=== PATIENT | female | born 1960 | race Caucasian/White ===

== ENCOUNTER 2017-08-10 14:59 | Observation (INO) ==
[2017-08-10] MEDS ORDERED: MORPHINE 2 MG/1 ML SYRINGE IV STA (15:44)
[2017-08-10] MEDS ORDERED: ASPIRIN 325 MG TABLET PO STA (15:44)
[2017-08-10] MEDS ORDERED: ONDANSETRON 4 MG/2 ML VIAL IV STA (15:44)
[2017-08-10] MEDS ORDERED: METOPROLOL TARTRATE 25 MG TABLET PO STA (15:44)
[2017-08-10] MEDS ORDERED: ALUM/MAG/SIMETH/LIDO VISC 1:1 30 ML BOTTLE PO STA (15:44)
[2017-08-10] MEDS ORDERED: NITROGLYCERIN 2% OINT 1 INCH/GM PACK TOP STA (15:44)
--- NOTE | 2017-08-10 15:49 | EKG Report ---
Stationary ECG Study [facility] ER Test Date: 08/10/2017 3:14:28 PM Pat Name: BRYCE HARPER Department: Room: Gender: F Senior Receptionist: : 1960 Requested by: Jamie Harrison Order Number: [id number] Reading MD: JANESSA GÓMEZ Intervals [place] Rate: 69 P: 61 NJ: 151 QRS: -15 QRSD: 72 T: 32 QT: 395 QTc: 414 Interpretive Statements SINUS RHYTHM WITH SINUS ARRHYTHMIA Electronically Signed On 08-14-17 06:41:04 CDT by JANESSA GÓMEZ [email or web address]
[2017-08-10] MEDS ORDERED: ALUM/MAG/SIMETH/LIDO VISC 1:1 30 ML BOTTLE PO ONE (15:52)
[2017-08-10] MEDS ORDERED: ASPIRIN 325 MG TABLET ONE (15:52)
[2017-08-10] MEDS ORDERED: METOPROLOL TARTRATE 25 MG TABLET ONE (15:53)
[2017-08-10] MEDS ORDERED: NITROGLYCERIN 2% OINT 1 INCH/GM PACK TOP ONE (15:54)
[2017-08-10] MEDS ORDERED: ONDANSETRON 4 MG/2 ML VIAL ONE (15:55)
[2017-08-10 15:57] LABS: Basophils # 0.1 10*3/uL (0.0-0.2); Basophils % 0.9 % (0.0-0.8); Eosinophils # 0.4 10*3/uL (0.0-0.87); Hematocrit 45.1 VOL% (35.7-47.0); Hemoglobin 15.4 GM/DL (12.0-16.0); Immature Granulocytes % 0.3 %; Immature Granulocytes Absolute 0.02 #; Lymphocytes # 1.7 10*3/uL (1.4-4.0); Lymphocytes % 21.4 % (21.3-54.2); Mean Corpuscular HGB Conc 34.1 GM/DL (32-36); Mean Corpuscular Hemoglobin 31 PG (27-34); Mean Corpuscular Volume 90.4 FL (87-102); Mean Platelet Volume 10.9 FL (9.6-12.0); Monocytes # 0.8 10*3/uL (0.11-0.8); Monocytes % 10.1 % (1.7-12.7); Neutrophils % 62.3 % (38.7-73.9); Platelet Count 321 T/CUMM (130-400); Red Blood Count 4.99 MC/CUMM (3.8-5.5); Red Cell Distribution Width 13.2 % (9.3-17.3)
[2017-08-10 16:04] LABS: INR 1.4; PT Patient Result 14.3 SECS
[2017-08-10 16:08] LABS: Albumin 3.6 G/DL (3.4-5.0); Bilirubin,Total 0.6 MG/DL (0.2-1.0); Calcium 9.4 MG/DL (8.5-10.1); Magnesium 2.1 MG/DL (1.8-2.4); Osmolality,Calculated 287.8 MOS/KG (273-304); Potassium 4.1 MMOL/L (3.5-5.1); Total Protein 7.4 G/DL (6.4-8.3)
--- NOTE | 2017-08-10 16:47 | XRay Report ---
2 view chest 08/10/2017 414 PM Indication: Shortness of breath Comparison: Not available Findings: Cardiomediastinal contours are normal. Platelike atelectasis within the left lung base. No acute osseous abnormalities. Visualized upper abdomen demonstrates no acute pathology. Impression: No acute cardiopulmonary findings PROCEDURE INTERPRETED AT [facility] DEPARTMENT OF RADIOLOGY Final Report Signed by: Sterling Oneil
--- NOTE | 2017-08-10 17:47 | Emergency Department Note ---
Tejas Ansari Brooke, am scribing for, and in the presence of, Jamie Evans MD 15 :41. Cristina Ansari Charles R, MD, personally performed the services described in this documentation, ascribed by Jodi Lazaro in my presence, and it is both accurate and complete 747 . Arrival - Arrival Chief Complaint: Chest Pain Stated Complaint: chest pain ED Nursing Triage Note: c/o Having chest pain that started today around 1300, + nausea., 4mg zofran in route, 20 g to the left forearm , states the pain is radiating up to the neck and the back of the scalp., patient gowned and connected to monitor Mode of Arrival: Stretcher Limitations: No Limitations Source: Patient, EMS, RN Notes Reviewed Time Seen by Provider: 08/10/17 15:11 - History of Present Illness HPI Narrative: Patient is a 56 year old female brought into the ED by EMS with c/o chest pain. Patient states "I had a severe pain in my chest and I had to call the ambulance. " The pain radiates up into the right side of her neck. She says she also go nauseated, diaphoretic and has a headache. She says she has some "tingling" in her tongue. Patient says she has had chest pain in the past but "nothing this severe." She says the pain is gone now. She has no other complaints. She says she has a heart murmur but nothing was heard upon exam. Patient does not have any other medical problems. She does not have FHx of heart disease. She does not take any medications. She is not a smoker. Home Medications: Home Medications Medication Instructions Recorded Confirmed Type No Known Home Medications [No 08/10/17 08/10/17 History Known Home Medications] Review of System - Review of System 12 point system: reviewed and no additional remarkable complaints except as stated - Review of System Constitutional: Present: diaphoresis. Absent: fever Respiratory: Absent: respiratory distress Cardiovascular: Present: chest pain Gastrointestinal: Present: nausea Musculoskeletal: Present: neck pain (right side radiating from chest) Skin: Absent: rash Neurological: Present: headache Medical,Surgical,& Family Hx - Social History Smoking Status: Unknown if ever smoked Frequency of Alcohol Use: Unknown Type of Drug Use: Unknown Exam Vital Signs: Vital Signs Temperature 97.8 F 08/10/17 15:00 Pulse Rate 64 08/10/17 16:45 Respiratory Rate 16 08/10/17 16:45 Blood Pressure 116/79 08/10/17 16:45 O2 Sat by Pulse Oximetry 96 08/10/17 16:45 - General General appearance: alert, in no apparent distress - Head Head exam: Present: atraumatic, normocephalic - Eye Eye exam: Present: normal appearance, PERRL, EOMI - ENT ENT exam: Present: normal exam - Neck Neck exam: Present: normal inspection - Chest Chest inspection: Present: normal inspection, symmetric chest wall rise - Respiratory Respiratory exam: Present: normal lung sounds bilaterally - Cardiovascular Cardiovascular exam: Present: regular rate, normal rhythm, normal heart sounds. Absent: murmur - Abdominal Exam Abdominal exam: Present: soft, normal bowel sounds. Absent: distention, tenderness - Extremities Exam Extremities exam: Present: normal inspection - Back Exam Back exam: Present: normal inspection - Neurological Exam Neurological exam: Present: alert, oriented X3 - Psychiatric Psychiatric exam: Present: normal affect, normal mood - Skin Skin exam: Present: warm, dry, intact, normal color Course - Consultations Consultation #1: Hospitalist will admit patient Time: 17:59 Results - Labs CBC & BMP: 08/10/17 15:20 08/10/17 15:20 Lab Results: I have reviewed the patients labs Labs: Laboratory Tests 08/10/17 08/10/17 08/10/17 15:20 15:20 15:20 WBC 8.0 RBC 4.99 Hgb 15.4 Hct 45.1 MCV 90.4 MCH 31 MCHC 34.1 RDW 13.2 Plt Count 321 MPV 10.9 Neut % (Auto) 62.3 Lymph % (Auto) 21.4 [place] % (Auto) 10.1 Eos % (Auto) 5.0 Baso % (Auto) 0.9 H Neut # (Auto) 5.0 Lymph # (Auto) 1.7 [place] # (Auto) 0.8 Eos # (Auto) 0.4 Baso # (Auto) 0.1 Immature Gran % 0.3 Nucleated RBC % 0.0 Immature Gran # 0.02 Nucleated RBCs # 0.00 Immature Plt Fraction 0.0 INR 1.4 PT Patient/Control Mix 14.3 D-Dimer, Quantitative <= 0.5 Sodium 144 Potassium 4.1 Chloride 110 H Carbon Dioxide 29 Anion Gap 9.1 BUN 15 Creatinine 1.10 H GFR Calculation 64 BUN/Creatinine Ratio 13.00 Glucose 111 H Calculated Osmolality 287.8 Calcium 9.4 Magnesium 2.1 Total Bilirubin 0.60 AST 11 ALT 22 Alkaline Phosphatase 85 Total Protein 7.4 Albumin 3.6 Globulin 3.8 H Albumin/Globulin Ratio 0.9 L Lipase 371.0 Laboratory Tests 08/10/17 08/10/17 15:20 15:20 Troponin I < 0.015 B-Natriuretic Peptide 30 - Diagnostic Findings Procedure: Chest x-ray: report reviewed by me (No acute cardiopulmonary findings.) Disposition Clinical Impression: Chest pain Case discussed with: patient, patient's family Disposition: Still a Patient Condition: Stable Time of Disposition: 17:59
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
[2017-08-10 19:17] LABS: Apearance,Urine Slightly Hazy (Clear); Bacteria,Urine Occasional /HPF (Few); Bilirubin,Urine Negative (Negative); Blood, Urine Negative (Negative); Glucose,Urine (UA) Negative (Negative); Ketones,Urine Negative (Negative); Mucus,Urine Occasional /LPF (Occasional); Nitrite,Urine Negative (Negative); Protein,Urine Negative; Squamous Epithelial Cell,Urine Occasional /HPF (0-10); Urine Color Yellow (Yellow); Urine Specific Gravity 1.023 (1.001-1.035); WBC,Urine <1 /HPF (0-6)
[2017-08-10] MEDS: PANTOPRAZOLE 40 MG TABLET PO SCH (21:16)
[2017-08-10] MEDS: ALUM/MAG/SIMETH/LIDO VISC 1:1 30 ML BOTTLE PO SCH (21:16)
[2017-08-11] MEDS ORDERED: IBUPROFEN 800 MG TABLET PO PRN (03:53)
[2017-08-11] MEDS ORDERED: ACETAMINOPHEN 325 MG TABLET PO PRN (03:54)
[2017-08-11] MEDS ORDERED: ONDANSETRON 4 MG/2 ML VIAL IV PRN (03:55)
[2017-08-11] MEDS ORDERED: ALUMINUM/MAGNES/SIMETH MAX STR 30 ML UDCUP PO PRN (03:56)
[2017-08-11] MEDS: ALUM/MAG/SIMETH/LIDO VISC 1:1 30 ML BOTTLE PO SCH ×3 (08:29→21:16)
[2017-08-11] MEDS: PANTOPRAZOLE 40 MG TABLET PO SCH ×2 (08:29→21:16)
--- NOTE | 2017-08-11 09:08 | Gastrointestinal Consult Note ---
Assessment and Plan (1) Atypical chest pain Status: Acute Assessment and plan: The patient has been experiencing some 10 out of 10 atypical chest pain with essentially negative workup here at the hospital including troponin levels, EKG , laboratory workup. She did respond somewhat to a GI cocktail, this may represent a pill esophagitis versus esophageal spasm or severe gastritis/reflux esophagitis. We will take the patient to upper endoscopy tomorrow morning so that she could potentially be discharged after the procedure. She is still nauseated and is concerned about going home as to have to come back into the hospital to get this worked up further. Agree with the use of pantoprazole in a twice daily dosing schedule at 40 mg in the interim. We may cut this back depending on the findings of the upper endoscopy tomorrow. Will likely take biopsies looking for bacterial infections in the stomach and note whether or not gastroparesis is present and feeding into present symptoms. Current Visit: Yes (2) GERD (gastroesophageal reflux disease) Status: Acute Assessment and plan: Patient has very minimal symptoms at baseline. She usually controls this with Tums but occasionally has to rely upon [id number] Nexium. Current Visit: Yes (3) Screening for colorectal cancer Status: Acute Assessment and plan: This can be set up as an outpatient once the patient is left the hospital at some point in the future, suggest [address] as she has not had this done previously--she is 5 years overdue at this point. Unfortunately she does not have a primary care provider. Current Visit: Yes History of Present Illness Chief complaint: Epigastric pain History of present illness: Ms. Nick is a 56 year old female who was brought in under observation by Dr. Quan who has a history of underlying reflux which is unusual for her that she treats with Tums mostly and occasional Nexium [id number]--she was in her state of usual health when she developed a substernal chest pressure that was 10 out of 10 in intensity at about lunchtime there was not associated with fainting but did radiate up from the chest into the head and was associated with a headache. This occurred after eating tuna fish with water. She states to me that it was at the level of the xiphoid but did not go down to the epigastric region. She did feel nauseous but did not vomit at all. She does not typically use NSAID, food does not get stuck if she was swallowing but she has not been brave enough to have anything solid since the pain resolved. She was treated with a GI cocktail in the emergency room after EKG and chest x-ray were negative for acute process. D-dimers were negative, the patient's hematocrit is normal at 45.1% with hemoglobin of 15.4 g/dL and basically a normal T1 and creatinine at 15 and 1.1 patient's liver function tests are also normal as were her troponin levels. She was about to be discharged but would like to stay until she is performed on upper endoscopy to look for evidence of reflux or pill esophagitis, ulcers, cancer etc. she states that she does not take any medications on a routine basis but does admit to occasional use of Tums and the Nexium 22 mg as mentioned. She does not have diarrhea or constipation typically, she has never had upper or lower endoscopy and is 5 years overdue for the colon to be checked for colorectal cancer screening purposes. We will arrange for this going out the door as an outpatient. She has not noticed any bright red blood per rectum or black tarry bowel movements. Rectal exam today showed guaiac negative stool. Her only abdominal surgery has been a . Home Medications Medication Instructions Recorded Confirmed Type No Known Home Medications [No 08/10/17 08/10/17 History Known Home Medications] Allergies Allergy/AdvReac Type Severity Reaction Status Date / Time No Known Allergies Allergy Verified 08/10/17 20:26 Medical,Surgical,& Family Hx - Medical History Cardio: History of: Valvular Heart Disease (pt reports heart murmer) Gastrointestinal: History of: GERD Musculoskeletal: History of: Degenerative Disk Disease - Surgical History Thoracic Surgeries: Surgical HX of;: Nephrectomy (pt reports she donated a kidney in 2001) Reproductive Surgeries: Surgical HX of;: Section - Family History Family History: Reports;: Family Cancer, Family Heart Disease - Social History Smoking Status: Never smoker Frequency of Alcohol Use: Unknown Type of Drug Use: Unknown Review of systems: Constitutional: Denies fever, chills, and vomiting--some nausea noted Eyes: Denies dry eyes, and scleral icterus HENT: Admits to some headaches Cardiovascular: She is having acute chest pain, but no claudication Respiratory: Denies shortness of breath, wheezing, and difficulty breathing, denies cough Gastrointestinal: As noted in the HPI Genitourinary: Denies dysuria and hematuria Neurologic: Denies vision loss, and loss of sensation Musculoskeletal: The patient does have some joint stiffness, but no joint swelling and/or muscular weakness Psychiatric: Denies depression and tiera symptoms Heme-Lymph: Denies easy bruising, lymph node enlargement or tenderness, night sweats, excessive bleeding Allergies-immunologic: Denies pruritus and rhinorrhea Exam - Constitutional Vitals: Period Temp Pulse Resp BP Sys/Strong Pulse Ox Last 24 Hr 96.6 F-97.8 F 47-78 16-20 92-151/48-96 92-100 General appearance: mild distress - Head Head exam: Present: normocephalic - Eye Eye exam: Present: EOMI Pupils: Present: JUAN ALBERTO - Respiratory Respiratory exam: Present: clear to auscultation bilaterally. Absent: rhonchi, stridor, wheezes - Cardiovascular Cardiovascular exam: Present: regular rate and rhythm - GI/Abdominal GI/Abdominal exam: Present: normal bowel sounds, soft, other (Well-healed midline scar below umbilicus consistent with ). Absent: distended, guarding, tenderness, rebound - Extremities Exam Extremities exam: Absent: edema - Neurological Exam Neurological exam: Present: alert, oriented X3, CN II-XII intact. Absent: motor sensory deficit - Psychiatric Psychiatric exam: Present: normal affect, normal mood - Skin Skin exam: Present: warm Results - Labs CBC & BMP: 08/10/17 15:20 08/10/17 15:20
--- NOTE | 2017-08-11 09:15 | Discharge Summary ---
<Atilio Davies - Last Filed: 08/11/17 09:13> Hospital Course - Hospital Course Hospital Course: Ms. Lovett is a 56 year old white female with a history of GERD and degenerative disc disease who presented to the ED on 08/10 with complaints of chest pain with onset hours prior to arrival. Patient states she was walking in her hallway when she began to have severe chest pain. Patient states that the pain started 45 minutes after she consumed tunafish with water. Patient states that the pain is located underneath her right breast and into the epigastric area. Patient reported radiation of the pain into her neck and went into her head causing her to have a headache. She has had pain like this for months to years, and takes OTC Nexium intermittently. She has never had GI workup. Patient denies having a PCP. She denies smoking, drinking, and illicit drug use. She does have a family history of heart disease. Pt. also reports being under lots of stress. Troponins negative and based on history and PMH she is at low risk for cardiac cause. CXR negative for any acute process. Pt was admitted overnight for observation. GI was consulted to evaluate patient. I have seen and examined Mrs Lovett and have formed the discharge plan and reconciled the medicines. I agree with the summary above. She was seen by Dr Garzon who was able to do an EGD this morning which showed erosive esophagitis, duodentitis and gastritis and hiatal hernia due to NSAIDs. She is to avoid NSAIDs and has been instructed in diet changes to improve GERD. She will take Protonix 40mg BID prescribed by Dr Garzon and see him in clinic have cscope in about a month for screening. She will follow up [place] [facility] [place] about [place]. Diagnosis - Discharge Diagnosis (1) Chest pain Status: Acute (2) Degenerative disk disease Status: Chronic Specialty Discharge - Follow Up or Referrals Follow up with: Asael Garzon MD [Physician] - (Schedule for Outpatient Colonoscopy in 1 month at [facility]) [facility] [Provider Group] - 1 Week Discharge Plan - Discharge Data Disposition: Disch To Home/Self Care - Discharge Medications New Pantoprazole Tab [Protonix Tab] 40 mg PO BID #60 tablet - Follow Up or Referral Follow Up: Asael Garzon MD [Physician] - (Schedule for Outpatient Colonoscopy in 1 month at [facility]) - Forms/Instructions Exam - Constitutional Vitals: Period Temp Pulse Resp BP Sys/Strong Pulse Ox Last 24 Hr 96.2 F-98.6 F 51-70 16-18 104-126/53-69 94-97 Discharge Results Labs on day of discharge: Labs from last 24 hours 08/12/17 05:04 Sodium 141 Potassium 4.4 Chloride 106 Carbon Dioxide 30 Anion Gap 9.4 BUN 12 Creatinine 1.10 H GFR Calculation 64 BUN/Creatinine Ratio 10.00 Glucose 93 Calculated Osmolality 280.3 Calcium 9.1 DS: Provider Date of admission: 08/10/17 18:23 Primary care physician: . No PCP Attending physician on admission: Megan Quan MD Consults: 08/10/17 20:15 Consult to Physician [CONS] Routine Comment: epigastric pain Consulting Provider: Asael Garzon Person Notified: aware Date Notified: 08/11/17 Time Notified: 08:11 08/11/17 14:22 Consult to Anesthesiology [CONS] Routine Consulting Provider: Reason for Anesthesiology: Pre-op Clearance Discharging clinician: Atilio Davies NP <Paulina Zelaya - Last Filed: 08/12/17 10:44> Hospital Course - Time spent with patient Time with patient DS: Greater than 30 minutes (38 minutes required for discharge planning, medicine reconciliation, documentation.) Diagnosis - Discharge Diagnosis (1) Esophagitis Status: Acute (2) Gastritis and duodenitis Status: Acute (3) Atypical chest pain Status: Resolved Discharge Plan - Discharge Data Condition at Discharge: Stable Discharge Diet: no caffiene (avoid spicy foods, eating within 4 hours of bedtime ) Activity: resume usual activities as tolerated Exam - Constitutional General appearance: no acute distress, over weight - Head Head exam: Present: other (poor dentition) - Eye Eye exam: Present: EOMI. Absent: scleral icterus - Respiratory Respiratory exam: Present: clear to auscultation bilaterally - Cardiovascular Cardiovascular exam: Present: regular rate and rhythm, other (EKG shows NSR without ST-T wave acute changes ). Absent: diastolic murmur, systolic murmur - GI/Abdominal GI/Abdominal exam: Present: normal bowel sounds, soft. Absent: tenderness - Extremities Exam Extremities exam: Absent: edema - Neurological Exam Neurological exam: Present: alert, oriented X3
--- NOTE | 2017-08-11 11:28 | Hospitalist Progress Note ---
Assessment and Plan (1) Chest pain Status: Acute Assessment and plan: Admit to monitored bed. Serial ekgs and troponins. Give GI cocktail. Consult GI for eval in am. Start PPI. 08/11 troponins negative. Pain thought to have GI etiology. GI following. Possible scope in am. Continue to monitor. Current Visit: Yes (2) Degenerative disk disease Status: Chronic Current Visit: Yes Hospitalist: Subjective Interval history: Patient seen and examined this morning. Pt. alert and oriented. Pt denied any acute changes overnight. Pt. states that she is still having mild epigastric pain. GI following. May pursue scope in am. Exam - Constitutional Vitals: Period Temp Pulse Resp BP Sys/Strong Pulse Ox Last 24 Hr 96.6 F-97.8 F 47-78 16-20 92-151/48-96 92-100 General appearance: no acute distress, over weight - Head Head exam: Present: normal inspection, normocephalic - Eye Eye exam: Present: EOMI. Absent: scleral icterus Pupils: Present: JUAN ALBERTO - Respiratory Respiratory exam: Present: clear to auscultation bilaterally. Absent: wheezes - Cardiovascular Cardiovascular exam: Present: regular rate and rhythm - GI/Abdominal GI/Abdominal exam: Present: normal bowel sounds, soft. Absent: tenderness - Extremities Exam Extremities exam: Present: normal capillary refill. Absent: edema - Neurological Exam Neurological exam: Present: alert, oriented X3 - Psychiatric Psychiatric exam: Present: normal affect, normal mood, other (towards end of encounter pt did exhibit anxiousness in reference to possible scope by GI doctor. ) - Skin Skin exam: Present: normal color, warm, dry Results - Labs CBC & BMP: 08/10/17 15:20 08/10/17 15:20 Lab Results: I have reviewed the past 24 hour labs
[2017-08-12 06:10] LABS: Calcium 9.1 MG/DL (8.5-10.1); Osmolality,Calculated 280.3 MOS/KG (273-304); Potassium 4.4 MMOL/L (3.5-5.1)
[2017-08-12] MEDS ORDERED: MIDAZOLAM 2 MG/2 ML VIAL ONE (07:15)
[2017-08-12] MEDS ORDERED: PROPOFOL 200 MG/20 ML VIAL IV ONE (07:58)
[2017-08-12] MEDS ORDERED: LIDOCAINE 2% 5 ML VIAL ONE (07:58)
--- NOTE | 2017-08-12 08:14 | Operative Note ---
Date of procedure: 08/12/17 Pre-op diagnosis: Epigastric tenderness, normal hematocrit, early satiety Post-op diagnosis: other (LA class B erosive esophagitis, 2 cm hiatal hernia, erosive punctate gastritis thought secondary to NSAID's and erosive duodenitis.) Procedure: PROCEDURE: Esophagogastroduodenoscopy (EGD) with cold biopsy for pathology REFERRING PHYSICIAN: Megan Quan MD INDICATIONS: Epigastric tenderness, early satiety, normal hematocrit, NSAID exposure. The prior H&P was reviewed and interrim changes are as noted: No change from GI consultation yesterday ENDOSCOPIST: Asael Garzon MD ENDOSCOPE: Olympus Video 100 System upper endoscope ASA CLASS: 2 EXAM: CV: regular rate and rhythm respiratory: Clear without wheezes abdominal: active bowel sounds MEDICATION: Per nursing anesthesia protocol, see their notes PROCEDURE: After discussion of the potential risks and benefits of upper endoscopy, the informed consent was obtained. The patient was then placed in the left lateral decubitus position where sedation was achieved as noted above. Esophageal intubation was performed without difficulty, and the endoscope was advanced through the esophagus, stomach and duodenum. A slow withdrawal was then performed with retroflexion in the stomach for careful inspection of the incisura angularis, fundus and cardia. The scope was then returned to a neutral position and withdrawn through the esophagus. The patient tolerated the procedure well and without complication. BIOPSIES: Gastric antrum/body PHOTOGRAPHS: Obtained FINDINGS: Hypopharynx and Larynx: Normal Esohagoscopy Upper and middle thirds: Normal Lower third LA class B erosive esophagitis Esophogastric junctions: LA class B erosive esophagitis, no evidence of stricturing or Velez's Gastroscopy: Cardia/Fundus: 2 cm hiatal hernia otherwise normal Body: Mild erosive gastritis, biopsied Antrum and pylorus moderate erosive gastritis, punctate, biopsied, likely the source of the patient's pain Duodenoscopy: Bulb moderate erosive duodenitis Second and third portions: Mild erosive duodenitis IMPRESSION: LA class B erosive esophagitis, 2 cm hiatal hernia, erosive punctate gastritis thought secondary to NSAID's and erosive duodenitis. RECOMMENDATIONS: Protonix 40 mg P.o. twice daily 1 month and then cut this back to 40 mg prior to supper only prescription written and left on the front of the chart.-- Follow up for biopsy results in 1-2 weeks by phone [phone] Continue anti-gastroesophageal reflux measures (avoid carbonated and acidic beverages, avoid eating within 2 hours of bedtime, avoid tight fitting clothing , and elevate the front bed posts 6 inches prior to sleeping. Avoid NSAIDs, use Tylenol instead Patient is fine for discharge Asael Garzon MD COPY TO: Megan Quan MD Anesthesia: MAC Surgeon / Physician: Asael Garzon Estimated blood loss: minimal Specimens: other (Gastric antrum/body) Condition: stable Disposition: post procedure unit ([facility]) Results - Labs CBC & BMP: 08/10/17 15:20 08/12/17 05:04 Discharge Plan - Discharge Medications No Action No Known Home Medications [No Known Home Medications] - Follow Up or Referral Follow Up: Asael Garzon MD [Physician] - (Schedule for Outpatient [facility] month [facility]) - Forms/Instructions
--- NOTE | 2017-08-12 08:15 | Anesthesia Post-Op ---
Anesthesia Post OP - Post Ansesthetic Evaluation Patient seen in post op: Yes Resp: within normal limits CV: within normal limits Mental: within normal limits Temp: within normal limits [id number]-[id number]: within normal limits Nausea and Vomiting: within normal limits Pain: within normal limits
--- NOTE | 2017-08-12 08:17 | Gastrointestinal Progress Note ---
Assessment and Plan (1) Atypical chest pain Status: Acute Assessment and plan: The patient has been experiencing some 10 out of 10 atypical chest pain with essentially negative workup here at the hospital including troponin levels, EKG , laboratory workup. She did respond somewhat to a GI cocktail, this may represent a pill esophagitis versus esophageal spasm or severe gastritis/reflux esophagitis. We will take the patient to upper endoscopy tomorrow morning so that she could potentially be discharged after the procedure. She is still nauseated and is concerned about going home as to have to come back into the hospital to get this worked up further. Agree with the use of pantoprazole in a twice daily dosing schedule at 40 mg in the interim. We may cut this back depending on the findings of the upper endoscopy tomorrow. Will likely take biopsies looking for bacterial infections in the stomach and note whether or not gastroparesis is present and feeding into present symptoms. 08/12/17--the patient had an EGD which demonstrated LA class B erosive esophagitis likely explaining her atypical chest pain. Current Visit: Yes (2) GERD (gastroesophageal reflux disease) Status: Acute Assessment and plan: Patient has very minimal symptoms at baseline. She usually controls this with Tums but occasionally has to rely upon [id number] Nexium. 08/12/17--EGD results as follows: LA class B erosive esophagitis, 2 cm hiatal hernia, erosive punctate gastritis thought secondary to NSAID's and erosive duodenitis. I have written a prescription for Protonix 40 mg to be used twice daily for the first 1 month and then cut this back to once a day prior to supper. Biopsies are pending for Helicobacter pylori. Current Visit: Yes (3) Screening for colorectal cancer Status: Acute Assessment and plan: This can be set up as an outpatient once the patient is left the hospital at some point in the future, suggest [address] as she has not had this done previously--she is 5 years overdue at this point. Unfortunately she does not have a primary care provider. 08/12/17--we will arrange for this as an outpatient down the road. Current Visit: Yes Gastroenterology - PN: Subj Interval history: Patient feeling better, ready for discharge. EGD results as noted above. Exam (Progress Note) - Constitutional Vitals: Period Temp Pulse Resp BP Sys/Strong Pulse Ox Last 24 Hr 96.2 F-98.6 F 51-63 16-18 104-126/53-69 95-97 General appearance: no acute distress - Head Head exam: Present: normocephalic - Eye Eye exam: Present: EOMI Pupils: Present: JUAN ALBERTO - Respiratory Respiratory exam: Present: clear to auscultation bilaterally. Absent: rhonchi, stridor, wheezes - Cardiovascular Cardiovascular exam: Present: regular rate and rhythm - GI/Abdominal GI/Abdominal exam: Present: normal bowel sounds, tenderness (Mild epigastric), soft. Absent: distended, rebound - Extremities Exam Extremities exam: Absent: edema - Neurological Exam Neurological exam: Present: alert, oriented X3, CN II-XII intact. Absent: motor sensory deficit - Psychiatric Psychiatric exam: Present: normal affect, normal mood Results - Labs CBC & BMP: 08/10/17 15:20 08/12/17 05:04 Specialty Discharge - Follow Up or Referrals Follow up with: Asael Garzon MD [Physician] - (Schedule for Outpatient Colonoscopy in 1 month at [facility])
[2017-08-12] MEDS: PANTOPRAZOLE 40 MG TABLET PO SCH (10:36)
[2017-08-12 17:06] VITALS: BP 108/62
--- NOTE | 2017-08-13 13:24 | Pathology Report from [facility] ---
[facility] ACCESSION # : [id number] PATIENT NAME : Bryce Nick ORDERING DR : Asael Garzon MD CLINICAL HX: Abdominal pain - Nausea POST-OP DX: Gastritis SPECIMEN INFO: BRIT GROSS DESCRIPTION: The specimen is received in formalin labeled with the patients name and consists of a 0.7 x 0.3 cm aggregate of funes tissue. Submitted in one cassette. DIAGNOSIS FOR BRYCE NICK: GASTRIC, BIOPSY: Moderate active, chronic gastritis. H. pylori is seen on H&E stain. COLLECTED DATE: 08/12/2017 [facility] REPORT DATE: 08/13/2017 ELECTRONICALLY SIGNED BY: Mahnaz Ku M.D. 08/13/2017 - 11:16:26 [email or web address]
== END 2017-08-12 14:09 | disposition home or self-care (01) ==
LOC: EDUNIT# → EDBD → N.ED 14:59 → N.EDINP 14:59 → SUATTDRO 18:23 → N.5E 18:53
PROVIDERS: ADMIT Internal Medicine; ATTEND Internal Medicine